=== PATIENT | male | born 1975 | race Caucasian/White ===

== ENCOUNTER 2021-07-31 19:32 | Emergency (ER) | payer BC ==
[~2021-07-31] VITALS: Ht 180.3 cm; Wt 111.4 kg
[~2021-07-31 19:32] MED LIST: CYCL-1 PO
[2021-07-31] MEDS ORDERED: normal saline 1000ML IV soln IVB ONE (19:45)
[2021-07-31] MEDS ORDERED: ondansetron/PF 4mg/2ml inj IV ONE (19:45)
[2021-07-31] MEDS ORDERED: ketorolac trometh. 30mg/ml inj. IV ONE (19:45)
--- NOTE | 2021-07-31 20:04 | NUR ---
Patient back from CT and with US
[2021-07-31 20:54] LABS: BASOPHILS % (AUTO) 0.6 % (0-1); EOSINOPHILS # (AUTO) 0.1 X10'3 (0-0.9); HEMATOCRIT 44.4 % (42.0-52.0); HEMOGLOBIN 15.6 g/dl (14.0-17.9); LYMPHOCYTES % (AUTO) 29.6 % (21-51); MEAN CORPUSCULAR HEMOGLOBIN 31.5 PG (27.0-31.0); MEAN CORPUSCULAR HGB CONC 35.1 g/dL (33.0-36.5); MEAN CORPUSCULAR VOLUME 89.6 FL (78-98); MEAN PLATELET VOLUME 9.2 FL (7.4-10.4); MONOCYTES # (AUTO) 0.6 X10'3 (0-0.9); MONOCYTES % (AUTO) 8.2 % (2-12); NEUTROPHILS % (AUTO) 59.6 % (42-75); PLATELET COUNT 205 X10'3 (140-440); RED BLOOD COUNT 4.95 X10'6 (4.70-6.10); RED CELL DISTRIBUTION WIDTH 13.7 % (11.5-14.5); WHITE BLOOD COUNT 6.8 X10'3 (4.5-11.0)
[2021-07-31 20:54] LABS: CLARITY,URINE CLEAR (Clear); COLOR,URINE YELLOW (Yellow); GLUCOSE, URINE NEGATIVE (Neg); KETONES,URINE NEGATIVE (Neg); LEUKOCYTE ESTERASE ,URINE NEGATIVE (Neg); NITRITES, URINE NEGATIVE (Neg); OCCULT BLOOD,URINE NEGATIVE (Neg); PROTEIN,URINE NEGATIVE (Neg); UROBILINOGEN,URINE 0.2 E.U/dL (0.2-1.0)
[2021-07-31 21:00] LABS: UA COLLECTION TYPE VOIDED
[2021-07-31 21:03] LABS: ALANINE AMINOTRANSFERASE 27 U/L (12-78); ALBUMIN 4.2 G/DL (3.4-5.0); ALBUMIN/GLOBULIN RATIO 1.3 (1.1-1.5); ALKALINE PHOSPHATASE 80 IU/L (46-116); ANION GAP 7 (8-16); ASPARTATE AMINO TRANSFERASE 10 U/L (10-37); BILIRUBIN,TOTAL 0.3 MG/DL (0.1-1.0); BLOOD UREA NITROGEN 24 MG/DL (7-18); BUN/CREATININE RATIO 21.2 (5.4-32.0); CALCIUM 8.6 MG/DL (8.5-10.1); CHLORIDE 106 MMOL/L (99-107); CREATININE 1.13 MG/DL (0.60-1.10); GLUCOSE 95 MG/DL (70-104); SODIUM 141 MMOL/L (135-145); TOTAL CARBON DIOXIDE 27.7 MMOL/L (24-32); TOTAL PROTEIN 7.5 G/DL (6.4-8.2); eGFR 70 ML/MIN
[2021-07-31] MEDS ORDERED: BUPIVAcaine 0.5% inj/PF 30 ml vial IJ ONE ×2 (21:45)
[2021-07-31] MEDS ORDERED: HYDR-3972 PO (22:18)
[2021-07-31] MEDS ORDERED: ONDA4TAB12 PO (22:18)
[2021-07-31] MEDS ORDERED: METH-797 PO (22:18)
[2021-07-31] MEDS ORDERED: ondansetron 4mg rapidly disintigrating tab PO ONE (22:25)
[2021-07-31] MEDS ORDERED: HYDROcodone/acetaminophen 10/325mg tab PO ONE (22:25)
[2021-07-31 22:39] VITALS: BP 152/93
[2021-08-03] MEDS ORDERED: KETO10TA2 PO (06:11)
== END 2021-07-31 22:45 | disposition home or self-care (01) ==
LOC: ER 19:33
DX: M54.50 Low back pain, unspecified (principal); N50.811 Right testicular pain; N50.812 Left testicular pain; R10.31 Right lower quadrant pain; Z98.890 Other specified postprocedural states; Z79.899 Other long term (current) drug therapy
CPT/HCPCS: 20553; 36415; 74176; 76870; 80053; 81003; 85025; 93976; 96374; 96375; 99285; J1885; J2405; J7030